=== PATIENT | male | born 1950 | race Caucasian/White ===

== ENCOUNTER 2022-10-06 06:31 | Day surgery (SDC) | payer BC, OTHER ==
[~2022-10-06] VITALS: Ht 177.8 cm; Wt 69.4 kg
[2022-10-06] MEDS ORDERED: KETOROLAC TROMETHAMINE 30 MG VIAL IVP PRN (10:15)
[2022-10-06] MEDS ORDERED: ONDANSETRON HCL 4 MG/2 ML VIAL IVP PRN (10:15)
[2022-10-06] MEDS ORDERED: LR 1,000 ML IV SCH (10:15)
[2022-10-06] MEDS ORDERED: MEPERIDINE HCL/PF 25 MG/ML DISP.SYRIN IVP PRN (10:15)
[2022-10-06] MEDS ORDERED: HYDROmorphone 1 MG/ML INJ. CARTRIDGE IVP PRN (10:15)
[2022-10-06] MEDS ORDERED: NALOXONE HCL 0.4 MG/ML AMP (NARCAN) IVP PRN (10:15)
[2022-10-06] MEDS ORDERED: MIDAZOLAM HCL 5 MG/ML VIAL (VERSED) IV ONE (12:08)
[2022-10-06] MEDS ORDERED: ONDANSETRON HCL 4 MG/2 ML VIAL ONE (12:08)
[2022-10-06] MEDS ORDERED: ROCURONIUM BROMIDE 10 MG/ML (ZEMURON) ONE (12:08)
[2022-10-06] MEDS ORDERED: CEFAZOLIN 2 GM IVPB PREMIX 50 ML IV ONE (12:08)
[2022-10-06] MEDS ORDERED: LIDOCAINE/EPI 1% 1:100000 20 ML VIAL ONE (12:08)
[2022-10-06] MEDS ORDERED: PROPOFOL 200MG/ 20ML VIAL (DIPRIVAN) IV ONE (12:08)
[2022-10-06] MEDS ORDERED: DEXAMETHASONE SOD PHOSPHATE 4 MG/ML VIAL ONE (12:08)
[2022-10-06] MEDS ORDERED: NEOSTIGMINE METHYLSULFATE 1 MG/ML, 10 ML VIAL ONE (12:08)
[2022-10-06] MEDS ORDERED: LR 1,000 ML IV.SOLN IV ONE (12:08)
[2022-10-06] MEDS ORDERED: fentaNYL CITRATE/PF 100 MCG/2 ML AMP ONE (12:08)
[2022-10-06] MEDS ORDERED: BUPIVACAINE /EPINEPHRINE/PF 0.25% 30 ML VIAL ONE (12:08)
[2022-10-06] MEDS ORDERED: GLYCOPYRROLATE 0.2 MG/ML VIAL ONE (12:08)
[2022-10-06] MEDS ORDERED: METOCLOPRAMIDE HCL 10 MG/2 ML VIAL ONE (12:08)
[2022-10-06] MEDS ORDERED: KETOROLAC TROMETHAMINE 30 MG VIAL ONE (12:08)
[2022-10-06] MEDS ORDERED: SEVOFLURANE 15 MIN GAS INH ONE (12:08)
[2022-10-06] MEDS ORDERED: BUPIVACAINE /PF 0.25% 30 ML VIAL INJ ONE (12:08)
[2022-10-06 14:53] VITALS: BP_SYST 135
== END 2022-10-06 14:40 | disposition home or self-care (01) ==
LOC: SDS 06:31 → SMU 06:32 → SDS 14:40
PROVIDERS: ATTEND Orthopaedic Surgery Sports Medicine
DX: M75.111 Incomplete rotator cuff tear or rupture of right shoulder, not specified as traumatic (principal); M75.21 Bicipital tendinitis, right shoulder; I10 Essential (primary) hypertension; F32.A Depression, unspecified; F41.9 Anxiety disorder, unspecified; Z79.899 Other long term (current) drug therapy; Z20.822 Contact with and (suspected) exposure to COVID-19
CPT/HCPCS: 36415 ×2; 29827; 29822; 29826; 64415; 87426; U0003; J3490 ×3; J0690; J1100; J1885; J2765; J2250; J2405; J2704; J3010; J7120; C1713; J2710

== ENCOUNTER 2023-04-01 15:40 | Emergency (ER) | payer BC, OTHER ==
[~2023-04-01] VITALS: Ht 177.8 cm; Wt 65.8 kg
[2023-04-01 15:44] VITALS: BP_SYST 132
[2023-04-01 16:04] VITALS: BP_SYST 134
[2023-04-01] MEDS ORDERED: NAPR-690 PO (17:04)
== END 2023-04-01 17:12 | disposition home or self-care (01) ==
LOC: SED 15:40
DX: S02.2XXA Fracture of nasal bones, initial encounter for closed fracture (principal); S01.81XA Laceration without foreign body of other part of head, initial encounter; Z79.899 Other long term (current) drug therapy; W18.40XA Slipping, tripping and stumbling without falling, unspecified, initial encounter; Y93.89 Activity, other specified; Y92.89 Other specified places as the place of occurrence of the external cause; Y99.8 Other external cause status
CPT/HCPCS: 70486-TC; 76376; 99284